=== PATIENT | male | born 1990 | race Caucasian/White ===

== ENCOUNTER 2018-07-09 07:59 | Emergency (ER) | payer BC ==
[2018-07-09] MEDS ORDERED: PROMETHAZINE INJ 25 MG in SODIUM CHLORIDE 0.9% 50 ML IV STA (08:11)
[2018-07-09] MEDS ORDERED: SODIUM CHLORIDE 0.9% 1,000 ML IV ONE (08:11)
[2018-07-09] MEDS ORDERED: KETOROLAC 15 MG/ML VIAL IVP STA (08:11)
[2018-07-09] MEDS ORDERED: fentaNYL 100 MCG/2 ML VIAL IVP STA (08:28)
[2018-07-09 08:48] LABS: BASOPHILS # (AUTO) 0.1 10^3/uL (0.0-0.1); BASOPHILS % (AUTO) 1.1 %; EOSINOPHILS # (AUTO) 0.1 10^3/uL (0.0-0.7); EOSINOPHILS % (AUTO) 2.7 %; HGB - HEMOGLOBIN 15.7 g/dL (14.0-18.0); LYMPHOCYTES # (AUTO) 1.2 10^3/uL (1.5-3.5); LYMPHOCYTES % (AUTO) 25.8 %; MEAN CORPUSCULAR HEMOGLOBIN 31.1 pg (27.0-31.0); MEAN CORPUSCULAR HGB CONC 34.2 g/dL (32.0-36.0); MEAN CORPUSCULAR VOLUME 91.1 fL (80.0-94.0); MEAN PLATELET VOLUME 7.8 fL (7.4-11.4); MONOCYTES # (AUTO) 0.4 10^3/uL (0.0-1.0); MONOCYTES % (AUTO) 9.3 %; NEUTROPHILS # (AUTO) 2.9 10^3/uL (1.5-6.6); NEUTROPHILS % (AUTO) 61.1 %; PLT - PLATELET COUNT 207 10^3/uL (130-450); RED BLOOD COUNT 5.05 10^6/uL (4.70-6.10); RED CELL DISTRIBUTION WIDTH 12.7 % (12.0-15.0); WHITE BLOOD COUNT 4.8 x10^3/uL (4.8-10.8)
[2018-07-09 08:53] LABS: ALBUMIN 5.1 g/dL (3.2-5.5); BILIRUBIN,TOTAL 0.8 mg/dL (0.2-1.0); BILIRUBIN,URINE NEGATIVE (NEGATIVE); CALCIUM 9.2 mg/dL (8.5-10.3); CREATININE 0.9 mg/dL (0.6-1.2); GLUCOSE, URINE (UA) NEGATIVE (NEGATIVE); KETONES,URINE (UA) NEGATIVE (NEGATIVE); LEUKOCYTE ESTERASE, URINE NEGATIVE (NEGATIVE); NITRITE,URINE NEGATIVE (NEGATIVE); OCCULT BLOOD,URINE MODERATE (NEGATIVE); PROTEIN,URINE NEGATIVE (NEGATIVE); TOTAL PROTEIN 7.7 g/dL (6.7-8.2); UROBILINOGEN,URINE 0.2 (NORMAL) E.U./dL (NORMAL)
[2018-07-09 09:00] LABS: CLARITY,URINE CLEAR (CLEAR)
[2018-07-09 09:30] LABS: BACTERIA,URINE None Seen /HPF (None Seen); RBC,URINE 0-5 /HPF (0-5); SQUAMOUS EPITHELIAL CELL,UR NONE SEEN (<= Few)
--- NOTE | 2018-07-09 09:35 | Ultrasound Report ---
Reason: left flank pain Procedure Date: 07/09/2018 Accession Number: [id number] / [id number] Procedure: US - Retroperitoneal Limited CPT Code: FULL RESULT: EXAM: RENAL ULTRASOUND EXAM DATE: 07/09/2018 09:22 AM. CLINICAL HISTORY: Left flank pain. COMPARISON: None. TECHNIQUE: Real-time scanning was performed with static images obtained. FINDINGS: Right Kidney: 11.7 x 5.0 x 5.1 cm. There is a simple cyst in the interpolar region measuring 1.2 x 1.1 x 1.2 cm. There appear to be several subcentimeter echogenic foci at the corticomedullary junction, which may represent nonobstructing calculi. For example, there is a suspected 4 mm calculus in the lower pole and a 7 mm calculus in the interpolar region. Mild pelviectasis is demonstrated. No contour deforming renal lesion. Left Kidney: 11.6 x 5.2 x 5.2 cm. There is mild pelviectasis, similar to the right kidney. No definite nephrolithiasis demonstrated. No contour deforming lesion. Bladder: Bilateral jets seen. The prevoid bladder volume was 424 cc. The postvoid bladder volume was 57 cc. Other: None. IMPRESSION: 1. Mild bilateral pelviectasis without tramaine hydronephrosis. Findings are nonspecific and could be physiologic or secondary to urinary distention (prevoid bladder volume of 424 cc). Bilateral ureteral jets are visualized, suggesting no obstructing ureteral calculus is present. However, nonobstructing ureteral calculus cannot be completely excluded by this examination. 2. Suspect nonobstructing right-sided nephrolithiasis. RADIA
[2018-07-09 09:41] VITALS: BP 137/86
--- NOTE | 2018-07-09 09:51 | ED Physician Documentation ---
History of Present Illness - Stated complaint Stated Complaint: SIDE PX/NAUSEA - Chief complaint Chief Complaint: General - Additonal information Additional information: 27-year-old male with a history of recurrent kidney stones presents the emergency department with complaints of left flank pain and nausea. The patient reports that this is similar to prior episodes of renal colic that he is experienced in the past. The patient denies fevers or chills. No triggering factors. No relieving factors. No other associated symptoms Review of Systems Constitutional: denies: Fever, Chills Eyes: denies: Discharge Ears: denies: Ear pain Nose: denies: Congestion Throat: denies: Oral lesions / sores Cardiac: denies: Chest pain / pressure Respiratory: denies: Cough GI: reports: Nausea. denies: Abdominal Pain : denies: Dysuria Skin: denies: Rash Musculoskeletal: denies: Neck pain Neurologic: denies: Generalized weakness PD PAST MEDICAL HISTORY - Past Medical History Past Medical History: Yes Endocrine/Autoimmune: Other Other Past Medical History: chronic kidney stones - Past Surgical History Past Surgical History: No - Present Medications Home Medications: Ambulatory Orders Medication Instructions Recorded Confirmed Hydrocodone/Acetaminophen [[facility] 1 each PO Q6HR PRN #10 tablet 07/09/18 5-325 Tablet] Ondansetron HCl [Zofran] 4 mg PO Q6HR PRN #30 tablet 07/09/18 Telmisartan 80 mg PO DAILY 07/09/18 07/09/18 buPROPion [Wellbutrin Xl] 1 tab PO DAILY 07/09/18 07/09/18 - Allergies Allergies/Adverse Reactions: Allergies Allergy/AdvReac Type Severity Reaction Status Date / Time No Known Drug Allergies Allergy Verified 07/09/18 08:09 - Social History Does the pt smoke?: No Smoking Status: Never smoker - Immunizations Immunizations are current?: Yes PD ED PE NORMAL - General General: Alert and oriented X 3 - HEENT HEENT: Atraumatic, PERRL, EOMI, Ears normal - Neck Neck: Supple, no meningeal sign - Cardiac Cardiac: RRR, Strong equal pulses - Respiratory Respiratory: No respiratory distress - Abdomen Abdomen: Soft, Non tender, Non distended - Back Back: Other (The patient has tenderness in the left flank) - Derm Derm: Normal color - Extremities Extremities: No deformity - Neuro Neuro: Alert and oriented X 3, Normal speech - Psych Psych: Normal affect Results - Vitals Vitals: Vital Signs - 24 hr 07/09/18 07/09/18 07/09/18 08:06 09:00 09:41 Temperature 36.4 C L Heart Rate 106 H 86 Respiratory 16 Rate Blood Pressure 178/104 H 139/84 H 137/86 H O2 Saturation 100 98 Oxygen O2 Source Room air - Labs Labs: Laboratory Tests 07/09/18 07/09/18 07/09/18 08:20 08:20 08:20 WBC 4.8 RBC 5.05 Hgb 15.7 Hct 46.0 MCV 91.1 MCH 31.1 H MCHC 34.2 RDW 12.7 Plt Count 207 MPV 7.8 Neut # (Auto) 2.9 Lymph # (Auto) 1.2 L [place] # (Auto) 0.4 Eos # (Auto) 0.1 Baso # (Auto) 0.1 Absolute Nucleated RBC 0.00 Nucleated RBC % 0.0 Sodium 139 Potassium 4.0 Chloride 103 Carbon Dioxide 28 Anion Gap 8.0 BUN 13 Creatinine 0.9 Estimated GFR (MDRD) 100 Glucose 132 H Calcium 9.2 Total Bilirubin 0.8 AST 24 ALT 25 Alkaline Phosphatase 64 Total Protein 7.7 Albumin 5.1 Globulin 2.6 Albumin/Globulin Ratio 2.0 Lipase 45 Urine Color LIGHT YELLOW Urine Clarity CLEAR Urine pH 7.0 Ur Specific [place] <=1.005 Urine Protein NEGATIVE Urine Glucose (UA) NEGATIVE Urine Ketones NEGATIVE Urine Occult Blood MODERATE H Urine Nitrite NEGATIVE Urine Bilirubin NEGATIVE Urine Urobilinogen 0.2 (NORMAL) Ur Leukocyte Esterase NEGATIVE Urine RBC 0-5 Urine WBC 0-3 Ur Squamous Epith Cells NONE SEEN Urine Bacteria None Seen Ur Microscopic Review INDICATED Urine Culture Comments NOT INDICATED - Rads (name of study) US renal Radiology: Final report received, See rad report (1. Mild bilateral pelviectasis without tramaine hydronephrosis. Findings are nonspecific and could be physiologic or secondary to urinary distention (prevoid bladder volume of 424 cc). Bilateral ureteral jets are visualized, suggesting no obstructing ureteral calculus is present. However, nonobstructing ureteral calculus cannot be completely excluded by this examination. 2. Suspect nonobstructing right-sided nephrolithiasis. ) PD MEDICAL DECISION MAKING - ED course ED course: On reevaluation the patient is resting comfortably and appears to be in no acute distress. Presently the patient appears appropriate for discharge and ongoing outpatient management with his urologist in [place]. I discussed warning signs and recommended returning to the emergency department for any worsening or any concerns Departure - Departure Disposition: Home, Self Care Clinical Impression: Renal colic on left side Condition: Good Instructions: ED Stone Renal W Colic Prescriptions: Hydrocodone/Acetaminophen [[facility] 5-325 Tablet] 1 each PO Q6HR PRN #10 tablet PRN Reason: Pain Ondansetron HCl [Zofran] 4 mg PO Q6HR PRN #30 tablet PRN Reason: Nausea / Vomiting Comments: Please follow-up with your urologist in [place] for further investigation of your symptoms Please return to the emergency department for any worsening or any concerns
[2018-07-09] MEDS ORDERED: ONDANSETRON 4 MG/2 ML VIAL IVP STA (09:54)
[2018-07-09] MEDS ORDERED: HYDROcod/ACETAM 5/325 MG TABLET PO STA (09:54)
== END 2018-07-09 10:07 | disposition home or self-care (01) ==
LOC: ED 07:59
DX: N23 Unspecified renal colic (principal); Z87.442 Personal history of urinary calculi
CPT/HCPCS: 36415; 76775; 80053; 81001; 83690; 85025; 96365; 96375; 99283; A9270; J7040; 81003; 87086